=== PATIENT | female | born 1990 | race African-American/Black ===

== ENCOUNTER 2017-01-31 13:01 | Emergency (ER) | payer SELFPAY ==
[~2017-01-31] VITALS: Ht 170.2 cm; Wt 86.0 kg
[2017-01-31 13:04] VITALS: Ht 170.2 cm; Wt 86.0 kg
[2017-01-31] MEDS ORDERED: ACETAMINOPHEN 500 MG TAB PO STA (13:38)
[2017-01-31 13:55] LABS: URINE BLOOD (Dip) POC Trace-intact (NEGATIVE)
[2017-01-31 13:56] LABS: ADD SCAN DIFF NO
[2017-01-31 14:09] LABS: EOSINOPHILS # 0.1 10^3/ul (0.0-0.5); EOSINOPHILS % 1.2 % (0.0-7.0); HEMATOCRIT 37.6 % (37.0-47.0); HEMOGLOBIN 11.9 g/dl (12.0-16.0); LYMPHOCYTES # 1.7 10^3/ul (0.8-2.9); MEAN CORPUSCULAR HGB CONC 31.6 g/dl (32.0-37.0); MEAN CORPUSCULAR VOLUME 88.5 fl (82.0-101.0); MEAN PLATELET VOLUME 10.2 fl (7.4-10.4); MONOCYTE # 0.2 10^3/ul (0.3-0.9); MONOCYTES % 5.4 % (0.0-11.0); NEUTROPHILS % 50.2 % (39.0-77.0); PLATELET COUNT 233 10^3/UL (140-415); RED BLOOD COUNT 4.25 10^6/ul (4.20-5.40); RED CELL DISTRIBUTION WIDTH 13.2 % (11.5-14.5); WHITE BLOOD COUNT 4.1 10^3/ul (4.8-10.8)
[2017-01-31 14:20] LABS: ALBUMIN 4.8 g/dl (3.3-4.9); ALBUMIN/GLOBULIN RATIO 1.65; BILIRUBIN,INDIRECT 0.1 mg/dl (0-1.1); BILIRUBIN,TOTAL 0.1 mg/dl (0.2-1.3); CALCIUM 9.7 mg/dl (8.4-10.2); CREATININE 0.71 mg/dl (0.44-1.00); POTASSIUM 3.7 mmol/L (3.5-5.1); TOTAL PROTEIN 7.7 g/dl (6.1-8.1)
--- NOTE | 2017-01-31 14:37 | ERD ---
ER Documentation Chief Complaint Date/Time DATE: 01/31/17 TIME: 14:36 Chief Complaint right mid ap x 3 days; no n/v/d; no fevers; vag bleed since thursday HPI This is a 26-year-old female who presents to the emergency department today complaining of some right-sided abdominal pain for the past 4 days. Patient states that 2 weeks ago she got her menstrual cycle and then again on Thursday she started with vaginal bleeding and it is now currently light spotting. States she is visiting here from [place]. Denies any vaginal discharge. States she is sexually active with one partner. States in the past she has had a history of an ovarian cyst. States that she has taken Tylenol for the pain and does not notice the pain unless she is sitting and really focused on it. Patient denies any nausea vomiting diarrhea, fevers or chills ROS All systems reviewed and are negative except as per history of present illness. Medications Home Meds Active Scripts Acetaminophen* (Tylophen*) 500 Mg Capsule, 1 CAP PO Q6H Y for PAIN AND OR ELEVATED TEMP, #30 CAP Prov:ROSETTA DELAROSA PA-C 01/31/17 Allergies Allergies: Coded Allergies: No Known Allergy (Unverified , 01/31/17) PMhx/Soc History of Surgery: Yes (RT KNEE ) Anesthesia Reaction: No Hx Neurological Disorder: No Hx Respiratory Disorders: No Hx Cardiac Disorders: No Hx Psychiatric Problems: No Hx Miscellaneous Medical Probl: Yes (RT OVARIAN CYST ) Hx Alcohol Use: No Hx Substance Use: No Hx Tobacco Use: No Smoking Status: Never smoker Physical Exam Vitals Vital Signs Date Time Temp Pulse Resp B/P Pulse Ox O2 Delivery O2 Flow Rate FiO2 01/31/17 13:04 98.0 101 18 130/57 99 Physical Exam Const: No acute distress Head: Atraumatic Eyes: Normal Conjunctiva ENT: Normal External Ears, Nose and Mouth. Neck: Full range of motion..~ No meningismus. Resp: Clear to auscultation bilaterally Cardio: Regular rate and rhythm, no murmurs Abd: Soft, right-sided pelvic pain non distended. Normal bowel sounds. No specific tenderness at McBurney's. No left lower quadrant pain. Skin: No petechiae or rashes Back: No midline or flank tenderness Ext: No cyanosis, or edema Neur: Awake and alert Psych: Normal Mood and Affect Result Diagram: 01/31/17 1345 01/31/17 1345 Results 24 hrs Laboratory Tests Test 01/31/17 13:45 01/31/17 13:58 White Blood Count 4.110^3/ul Red Blood Count 4.2510^6/ul Hemoglobin 11.9g/dl Hematocrit 37.6% Mean Corpuscular Volume 88.5fl Mean Corpuscular Hemoglobin 28.0pg Mean Corpuscular Hemoglobin Concent 31.6g/dl Red Cell Distribution Width 13.2% Platelet Count 05601^3/UL Mean Platelet Volume 10.2fl Neutrophils % 50.2% Lymphocytes % 42.0% Monocytes % 5.4% Eosinophils % 1.2% Basophils % 1.0% Nucleated Red Blood Cells % 0.0/100WBC Neutrophils # 2.010^3/ul Lymphocytes # 1.710^3/ul Monocytes # 0.210^3/ul Eosinophils # 0.110^3/ul Basophils # 0.010^3/ul Nucleated Red Blood Cells # 0.010^3/ul Sodium Level 140mmol/L Potassium Level 3.7mmol/L Chloride Level 103mmol/L Carbon Dioxide Level 29mmol/L Anion Gap 12 Blood Urea Nitrogen 11mg/dl Creatinine 0.71mg/dl Glucose Level 103mg/dl Calcium Level 9.7mg/dl Total Bilirubin 0.1mg/dl Direct Bilirubin 0.00mg/dl Indirect Bilirubin 0.1mg/dl Aspartate Amino Transf (AST/SGOT) 26IU/L Alanine Aminotransferase (ALT/SGPT) 35IU/L Alkaline Phosphatase 65IU/L Total Protein 7.7g/dl Albumin 4.8g/dl Globulin 2.90g/dl Albumin/Globulin Ratio 1.65 Lipase 69U/L Bedside Urine pH (LAB) 6.0 Bedside Urine Protein (LAB) 1+ Bedside Urine Glucose (UA) Negative Bedside Urine Ketones (LAB) Negative Bedside Urine Blood Trace-intact Bedside Urine Nitrite (LAB) Negative Bedside Urine Leukocyte Esterase (L Negative Current Medications Medications (Trade) Dose Ordered Sig/Grace Route PRN Reason Start Time Stop Time Status Last Admin Dose Admin Acetaminophen (Tylenol Tab) 500 mg ONCE STAT PO 01/31/17 13:38 01/31/17 13:41 DC 01/31/17 13:46 DIAGNOSTIC IMAGING REPORT Patient: SAM PASCAL : 1990 Age: 26 Sex: F MR #: [id number] DOS: 01/31/17 0000 Ordering MD: ROSETTA DELAROSA PA-C Location: [facility] Room/Bed: PROCEDURE: US Pelvis. CLINICAL INDICATION: Pelvic pain TECHNIQUE: Multiple sonographic images of the pelvis were obtained utilizing a transabdominal and endovaginal technique. The images were reviewed on a PACS workstation. COMPARISON: None. FINDINGS: The uterus is visualized and measures 8.7 x 3.4 x 6.4 cm in size. The endometrial echo complex is normal and measures 1.9 mm. There is minimal free fluid. The right ovary has a normal echotexture and measures 3.6 x 1.8 x 2 cm. The left ovary has a normal echotexture and measures 2.9 x 1.6 x 2 cm. No adnexal masses are noted. IMPRESSION: 1. Minimal free fluid which may be physiologic in nature. 2. Otherwise, unremarkable pelvic ultrasound. RPTAT: HPNM Physician Eun Date Time Electronically viewed and signed by Physician Eun on 01/31/2017 14 :49 / CC: ROSETTA DELAROSA PA-C Procedures/MDM This is a 26-year-old female who presents the emergency department today complaining of right-sided pelvic pain for the past 4 days and intermittent vaginal bleeding that started approximately 1 week ago. Patient's physical exam she had some right-sided pelvic pain. She is not have any specific tenderness at McBurney's and therefore did obtain laboratory work as well as an ultrasound Laboratory work shows a very mildly decreased white blood cell count. Her hemoglobin is very mildly decreased. There is no indication for transfusion. Platelets are within normal limits. Electrolytes are within normal limits. Liver functions normal limits. Glucose is within normal limits. Lipase within normal limits. Urine test is negative Ultrasound shows minimal free fluid which may be physiologic in nature. Otherwise unremarkable pelvic ultrasound. There are no adnexal masses. Low suspicion for tubo-ovarian abscess, ovarian torsion, ectopic . Patient had no specific tenderness at McBurney's. She has no nausea vomiting diarrhea. She is afebrile and otherwise well-appearing. She has no elevated white blood cell count. She has no vomiting. Low suspicion for acute surgical abdomen. Patient was given Tylenol here in the emergency department as she declined any stronger pain medication stating that she is breast-feeding her [id number] child. Patient symptoms at this time is consistent with pelvic pain of uncertain etiology. And dysfunction uterine bleeding At this time the patient is stable for discharge and outpatient management. Patient should follow up with their PCP in the next 1-2 days. They may return to the emergency department sooner for any persistent or worsening of symptoms. Patient understood and agreed with the plan. Departure Diagnosis: Primary Impression: Pelvic pain Additional Impression: Dysfunctional uterine bleeding Condition: ROSETTA Rob PA-C Jan 31, 2017 14:37
--- NOTE | 2017-01-31 14:50 | RADRPT ---
PROCEDURE: US Pelvis. CLINICAL INDICATION: Pelvic pain TECHNIQUE: Multiple sonographic images of the pelvis were obtained utilizing a transabdominal and endovaginal technique. The images were reviewed on a PACS workstation. COMPARISON: None. FINDINGS: The uterus is visualized and measures 8.7 x 3.4 x 6.4 cm in size. The endometrial echo complex is n ormal and measures 1.9 mm. There is minimal free fluid. The right ovary has a normal echotexture and measures 3.6 x 1.8 x 2 cm. The left ovary has a normal echotexture and measures 2.9 x 1.6 x 2 cm. No adnexal masses are noted. IMPRESSION: 1. Minimal free fluid which may be physiologic in nature. 2. Otherwise, unremarkable pelvic ultrasound. RPTAT: HPNM Physician Eun Date Time Electronically viewed and signed by Physician Eun on 01/31/2017 14:49 /
[2017-01-31] MEDS ORDERED: ACET500C5 PO (15:11)
== END 2017-01-31 15:20 | disposition home or self-care (01) ==
LOC: FTE 13:01
DX: R10.2 Pelvic and perineal pain (principal); N93.8 Other specified abnormal uterine and vaginal bleeding
CPT/HCPCS: 76830; 76856; 80053; 81003; 83690; 85025